=== PATIENT | male | born 1950 | race Caucasian/White ===

== ENCOUNTER 2017-11-28 08:51 | Outpatient (CLI) | payer MEDICARE, BC ==
[~2017-11-28] VITALS: Ht 185.4 cm; Wt 125.9 kg
[~2017-11-28 08:51] MED LIST: ALDACTONE50 MG PO; K-DUR20 MEQ PO; LASIX40 MG PO
[2017-11-28 09:31] LABS: CALC OSMOLALITY 265 mosm/kg (275-300); CARBON DIOXIDE 27.2 mmol/L (21.0-32.0); CHLORIDE - SERUM 98 mmol/L (98-107); CREATININE - SERUM 0.9 mg/dL (0.6-1.3); GLUCOSE 142 mg/dL (74-106); POTASSIUM - SERUM 4.1 mmol/L (3.5-5.1); SODIUM 133 mmol/L (136-145); UREA NITROGEN 6 mg/dL (7-18); eGFR NON AFRICAN AMERICAN 89 mL/min (90-120)
[2017-11-28 09:33] LABS: BASOPHILS 0.5 % (0-2); EOSINOPHILS 1.2 % (0-7); HEMATOCRIT 41.1 % (42.0-54.0); HEMOGLOBIN 14.6 g/dL (13.5-17.5); IMMATURE GRANULOCYTES 0.2 % (0-5); LYMPHOCYTES 16.2 % (15-50); MCH 36.6 pg (26.0-34.0); MCHC 35.5 g/dL (31.0-37.0); MEAN PLATELET VOLUME 10.3 fL (7.4-10.4); MONOCYTES 11.8 % (2-11); NEUTROPHILS 70.1 % (40-80); RBC 3.99 10x6/uL (4.20-6.10); RDW 13.2 % (11.5-14.5); WBC 6.4 10x3/uL (4.8-10.8)
[2017-11-28 09:34] LABS: PLATELET COUNT 118 10x3/uL (130-400)
[2017-11-28 09:38] LABS: APTT 34.8 SECONDS (22.8-39.4); INR 1.51 (0.85-1.17); PROTIME 17.7 SECONDS (11.6-15.0)
[2017-11-28] MEDS ORDERED: OMEPRAZOLE40 MG PO (09:45)
[2017-11-28 09:47] VITALS: BP 130/71; Ht 185.4 cm; Wt 125.9 kg
== END 2017-11-28 14:45 | disposition home or self-care (01) ==
LOC: D.SP 08:51 → D.CT 11:00 → D.SP 11:00
PROVIDERS: Specialist
DX: R18.8 Other ascites (principal); K74.60 Unspecified cirrhosis of liver; Z01.812 Encounter for preprocedural laboratory examination

== ENCOUNTER → 2017-12-14 08:28 | Outpatient (CLI) | payer MEDICARE, BC ==
[2017-11-28 09:47] VITALS: BMI 36.6
[~2017-12-14 08:28] MED LIST changes: +OMEPRAZOLE40 MG PO
== END | disposition home or self-care (01) ==
LOC: D.US 08:28
DX: K74.60 Unspecified cirrhosis of liver (principal)